=== PATIENT | female | born 1995 | race Caucasian/White ===

== ENCOUNTER 2018-09-10 10:11 | Emergency (ER) | payer OTHER ==
[~2018-09-10] VITALS: Ht 160 cm; Wt 68.9 kg
== END 2018-09-10 11:16 | disposition home or self-care (01) ==
LOC: ER 10:11
DX: S00.83XA Contusion of other part of head, initial encounter (principal); S06.0X0A Concussion without loss of consciousness, initial encounter; W22.8XXA Striking against or struck by other objects, initial encounter; Y92.512 Supermarket, store or market as the place of occurrence of the external cause; Y99.0 Civilian activity done for income or pay
CPT/HCPCS: 99283

== ENCOUNTER 2018-11-23 15:19 | Emergency (ER) | payer OTHER ==
[~2018-11-23] VITALS: Ht 160 cm; Wt 68.9 kg
[2018-11-23] MEDS ORDERED: LIDOCAINE 1% W/EPINEPHRINE 20 ML VIAL INJ ONE (16:15)
[2018-11-23] MEDS ORDERED: HYDROCODONE/APAP 10MG-325MG TAB PO NR (16:30)
== END 2018-11-23 16:53 | disposition home or self-care (01) ==
LOC: ER 15:19
DX: L02.214 Cutaneous abscess of groin (principal)
CPT/HCPCS: 99283